=== PATIENT | male | born 1945 | race Caucasian/White ===

== ENCOUNTER 2023-10-22 08:00 | Outpatient (CLI) | payer OTHER | END 2023-10-22 23:59 | disposition home or self-care (01) | LOC: LAB 08:00 | PROVIDERS: ATTEND Urology | DX: R31.9 Hematuria, unspecified (principal) | CPT/HCPCS: 87086 ==

== ENCOUNTER 2023-11-08 08:32 | Day surgery (SDC) | payer OTHER ==
[2023-11-08] MEDS ORDERED: LACTATED RINGERS 1,000 ML IV ONE (09:02)
--- NOTE | 2023-11-08 09:10 | ANESTHESIA ---
Pre-Anesthesia VS, & Labs - Diagnosis mass of urinary bladder - Procedure cysto, TURP Home Medications and Allergies Home Medications: Ambulatory Orders Acetaminophen [Tylenol] 500 mg PO Q4-6H 11/01/23 Albuterol Sulf [Ventolin Hfa Inhaler] 1 - 2 puffs INH Q4HR PRN 11/01/23 Ascorbic Acid [Vitamin C] 500 mg PO DAILY 11/01/23 Atorvastatin Calcium 40 mg PO DAILY 11/01/23 Budesonide/Formoterol Fumarate [Symbicort 160-4.5 Mcg Inhaler] 2 puffs IH DAILY 11/01/23 Buspirone HCl 10 mg PO DAILY 11/01/23 Cholestyramine [Questran] 4 gm PO DAILY 11/01/23 Clopidogrel Bisulfate [Plavix] 75 mg PO DAILY 11/01/23 Famotidine [Pepcid] 20 mg PO QPM 11/01/23 Fluticasone [Flonase] 1 sprays ATILIO DAILY 11/01/23 Furosemide [Lasix] 40 mg PO DAILY 11/01/23 Gabapentin [Neurontin] 300 mg PO TID 11/01/23 Glucos Sul 2Kcl/MSM/Chond/C/Mn [Glucosamine Chondroitin Cap] 1 each PO DAILY 11/01/23 HYDROcod/ACETAM 5/325 [Providence 5/325] 1 - 2 tablet PO Q6H PRN 11/01/23 Insulin Glargine [Lantus Solostar] 25 unit SUBQ BID 11/01/23 Lisinopril [Zestril] 40 mg PO DAILY 11/01/23 Magnesium Oxide [Magnesium] 400 mg PO DAILY 11/01/23 Omeprazole 20 mg PO DAILY 11/01/23 Phenazopyridine HCl [Pyridium] 200 mg PO TID PRN 11/01/23 Vitamin B Complex 1 each PO DAILY 11/01/23 oxyBUTYnin chloride [Oxybutynin Chloride] 5 mg PO DAILY 11/01/23 Active Medications Cefazolin Sodium 3 gm/ Sodium (Chloride) 50 mls @ 100 mls/hr IV ONCE ONE Stop: 11/08/23 09:29 Acetaminophen [Tylenol] 500 mg PO Q4-6H 11/01/23 Albuterol Sulf [Ventolin Hfa Inhaler] 1 - 2 puffs INH Q4HR PRN 11/01/23 Ascorbic Acid [Vitamin C] 500 mg PO DAILY 11/01/23 Atorvastatin Calcium 40 mg PO DAILY 11/01/23 Budesonide/Formoterol Fumarate [Symbicort 160-4.5 Mcg Inhaler] 2 puffs IH DAILY 11/01/23 Buspirone HCl 10 mg PO DAILY 11/01/23 Cholestyramine [Questran] 4 gm PO DAILY 11/01/23 Clopidogrel Bisulfate [Plavix] 75 mg PO DAILY 11/01/23 Famotidine [Pepcid] 20 mg PO QPM 11/01/23 Fluticasone [Flonase] 1 sprays ATILIO DAILY 11/01/23 Furosemide [Lasix] 40 mg PO DAILY 11/01/23 Gabapentin [Neurontin] 300 mg PO TID 11/01/23 Glucos Sul 2Kcl/MSM/Chond/C/Mn [Glucosamine Chondroitin Cap] 1 each PO DAILY 11/01/23 HYDROcod/ACETAM 5/325 [Providence 5/325] 1 - 2 tablet PO Q6H PRN 11/01/23 Insulin Glargine [Lantus Solostar] 25 unit SUBQ BID 11/01/23 Lisinopril [Zestril] 40 mg PO DAILY 11/01/23 Magnesium Oxide [Magnesium] 400 mg PO DAILY 11/01/23 Omeprazole 20 mg PO DAILY 11/01/23 Phenazopyridine HCl [Pyridium] 200 mg PO TID PRN 11/01/23 Vitamin B Complex 1 each PO DAILY 11/01/23 oxyBUTYnin chloride [Oxybutynin Chloride] 5 mg PO DAILY 11/01/23 Allergies/Adverse Reactions: Allergies Allergy/AdvReac Type Severity Reaction Status Date / Time aspirin AdvReac stomach Verified 11/01/23 14:51 irritation ibuprofen AdvReac stomach Verified 11/01/23 14:51 irritation Anes History & Medical History - Medical History Cardiovascular: reports: Hypertension, High cholesterol Pulmonary: reports: COPD, Sleep apnea Gastrointestinal: reports: GERD Urinary: reports: Benign prostate hypertrophy, Chronic bladder infection, Other Musculoskeletal: reports: Osteoarthritis Endocrine/Autoimmune: reports: Type 2 diabetes, Other Skin: reports: None - Surgical History General: reports: Cholecystectomy, Colonoscopy, EGD, Other Eyes Ears Nose Throat (EENT): reports: Cataracts Urologic: reports: Bladder surgery, Prostatic surgery Orthopedic: reports: Knee replacement
== END 2023-11-08 08:33 | disposition home or self-care (01) ==
LOC: SDS 08:32
PROVIDERS: ATTEND Urology
DX: Z53.09 Procedure and treatment not carried out because of other contraindication (principal)
CPT/HCPCS: J7040; J7120